=== PATIENT | male | born 1960 | race Caucasian/White ===

== ENCOUNTER 2021-08-01 14:52 | Emergency (ER) | payer MEDICARE, OTHER ==
[~2021-08-01 14:52] MED LIST: ACETAMINOPHEN650 M2; ASPIRIN81 M1 PO; BACLOFEN20 MG; BISACODYL10 MG/30 M; COLLAGENASE1 EACH; DOCUSATE SODIU100 M1; GUAIFENESIN600 MG; LACTULOSE20 GM/30 M; LORATADINE10 MG; MELATONIN3 MG; MIDODRINE HCL5 MG; MULTIVITAMIN; NAPROXEN SODIU275 MG; NYSTATIN-TRIAMC15 GM; OCULAR LUBRICANT; ONDANSETRON HCL4 MG; PANTOPRAZOLE SO40 MG PO; SENNA; SERTRALINE HCL50 MG; TRAZODONE HCL50 MG; TYGACIL50 MG; [UNRECOGNIZED DRUG - OTHER]; [UNRECOGNIZED DRUG - OTHER] TP
[2021-08-01] MEDS ORDERED: CASIRIVIMAB/IMDEVIMAB 10 ML in SODIUM CHLORIDE 0.9% 100 ML IV ONE (15:00)
== END 2021-08-01 16:58 | disposition home or self-care (01) ==
LOC: ER 15:10
DX: U07.1 COVID-19 (principal); G82.50 Quadriplegia, unspecified; Z99.3 Dependence on wheelchair
CPT/HCPCS: 99283; J7050